=== PATIENT | male | born 1950 | race Caucasian/White ===

== ENCOUNTER → 2016-04-02 | Outpatient (CLI) | payer BC ==
[~2016-04-02] MED LIST: ATOR-22 PO; FLX10 PO; LISI-787 PO; NEPA0.6D OPL; PRED1SUS3 OPR; TAMS0.4C38 PO; TRAZ100T29 PO; VENL150C PO; VENL75CA PO
--- NOTE | 2016-04-02 09:04 | DIAGNOSTIC IMAGING REPORT ---
BILIARY ULTRASOUND CLINICAL HISTORY: K76.89 hepatic cyst COMPARISON STUDY: 02/24/2015 FINDINGS: The pancreas appears normal as visualized. The distal body and tail are poorly delineated. Multiple hepatic cysts are identified. The largest is located within the right lobe measuring 29 x 26 x 25 mm. No gallstones are visualized. There are few tiny gallbladder polyps. There is no ductal dilatation. The common bile duct measures 6 mm. There is no right-sided hydronephrosis. IMPRESSION: 1. Hepatic cysts similar to the prior study 2. Tiny gallbladder polyps 3. No evidence of ductal dilatation Electronically signed by: Austin Hester M.D. 04/02/2016 9:02 AM Dictated Date/Time: 04/02/2016 9:01 AM
[2016-04-02 09:35] LABS: BASO % 0.4 %; BASO ABS # 0.03 K/uL (0-0.2); COMPLETE YES; HEMATOCRIT 45.2 % (42-52); IG% 0.1 %; LYMPH % 40.4 %; LYMPH ABS # 2.86 K/uL (1.2-3.4); MEAN CELL VOLUME 91.1 fL (80-100); MEAN CORPUSCULAR HEMOGLOBIN 31.3 pg (25-34); MEAN CORPUSCULAR HGB CONC 34.3 g/dl (32-36); MEAN PLATELET VOLUME 10.7 fL (7.4-10.4); MONO % 6.4 %; NEUT % 50.7 %; PLATELET COUNT 192 K/uL (130-400); RED BLOOD COUNT 4.96 M/uL (4.7-6.1); WHITE BLOOD COUNT 7.08 K/uL (4.8-10.8)
[2016-04-02 09:48] LABS: BLOOD UREA NITROGEN 13 mg/dl (7-18); CREATININE 0.83 mg/dl (0.60-1.40); GLUCOSE 91 mg/dl (70-99)
[2016-04-02 09:49] LABS: ALT/SGPT 61 U/L (12-78); AST/SGOT 30 U/L (15-37); CALCIUM 8.9 mg/dl (8.5-10.1); CARBON DIOXIDE 27 mmol/L (21-32); CHLORIDE 104 mmol/L (98-107); POTASSIUM 3.8 mmol/L (3.5-5.1); SODIUM 139 mmol/L (136-145)
== END | disposition home or self-care (01) ==
LOC: C.ULTR 08:10
PROVIDERS: ATTEND Internal Medicine Gastroenterology
DX: M19.90 Unspecified osteoarthritis, unspecified site (principal); K76.89 Other specified diseases of liver; K82.4 Cholesterolosis of gallbladder

== ENCOUNTER → 2016-10-04 | Outpatient (CLI) | payer BC ==
[~2016-10-04] MED LIST changes: -NEPA0.6D OPL; -PRED1SUS3 OPR
--- NOTE | 2016-10-04 16:56 | DIAGNOSTIC IMAGING REPORT ---
C-SPINE ROUTINE 4 OR 5 VIEWS HISTORY: 65 years-old Male CERVICALGIA . Neck pain without trauma. COMPARISON: Cervical spine MRI 12/01/2012 TECHNIQUE: 5 views of the cervical spine. FINDINGS: The seventh vertebral segment is not well seen secondary to patient positioning. Within the limitations of the study, there is no acute fracture, subluxation or significant intervertebral disc space narrowing. Moderate facet arthrosis is seen at C6-C7, left greater than right. 1.2 cm linear calcification noted within the region of the nuchal ligament. Mild bony neuroforaminal stenosis is seen on the right at C5-C6. The odontoid process appears intact. The lung apices are clear. IMPRESSION: 1. No acute cervical spine fracture or subluxation. 2. Moderate facet arthrosis is seen at C6-C7, left greater than right. 3. Mild bony neuroforaminal stenosis is seen on the right at C5-C6. The above report was generated using voice recognition software. It may contain grammatical, syntax or spelling errors. Electronically signed by: Dayday Hagen M.D. 10/04/2016 4:55 PM Dictated Date/Time: 10/04/2016 4:52 PM
== END | disposition home or self-care (01) ==
LOC: C.RADBC 15:47
PROVIDERS: ATTEND Physician Assistant
DX: M54.2 Cervicalgia (principal)